=== PATIENT | female | born 1995 | race Caucasian/White ===

== ENCOUNTER 2024-12-04 18:30 | Emergency (ER) | payer OTHER ==
[~2024-12-04] VITALS: Ht 162.6 cm; Wt 77.0 kg
[2024-12-04 18:40] VITALS: TEMP 36.9; O2SAT 100
[2024-12-04 21:17] LABS: BASOPHILS % 0.6 % (0.0-2.0); EOSINOPHILS % 1.4 % (0.0-5.0); HEMATOCRIT. 39.6 % (36.0-48.0); HEMOGLOBIN. 13.1 g/dL (12.0-16.0); LYMPHOCYTES % 26.9 % (20.0-50.0); MEAN CORPUSCULAR HEMOGLOBIN 27.7 pg (28.0-32.0); MEAN CORPUSCULAR HGB CONC 32.9 g/dL (31.0-37.0); MEAN PLATELET VOLUME 8.2 fl (7.4-10.4); MONOCYTES % 6.1 % (2.0-8.0); PLATELET 318 x1000/uL (130-400); RED BLOOD CELL COUNT 4.72 mill/uL (4.2-5.4); RED CELL DISTRIBUTION WIDTH 13.8 % (11.6-14.6); WHITE BLOOD COUNT 12.8 x1000/uL (4.5-11.0)
[2024-12-04 21:22] LABS: CHLORIDE 106 mEq/L (98-107); POTASSIUM 3.8 mEq/L (3.5-5.1); SODIUM 138 mEq/L (136-145)
[2024-12-04 21:23] LABS: CALCIUM 9.3 mg/dL (8.7-10.4); CARBON DIOXIDE 24 mEq/L (21-32)
[2024-12-04 21:28] LABS: CREATININE 0.8 mg/dL (0.6-1.0); GLUCOSE 88 mg/dL (70-105); HCG SCREEN NEGATIVE; UREA NITROGEN BLOOD 9 mg/dL (9-23)
[2024-12-04 21:33] LABS: TROPONIN I HIGH SENSITIVITY < 4 ng/L (3.0-34)
[2024-12-04] MEDS ORDERED: CYCL5TAB3 MT (21:55)
[2024-12-04] MEDS ORDERED: BO1 TP (21:59)
[2024-12-04 22:21] VITALS: BP 149/98; PULSE 61; RESP 16; TEMP 98.4
[2024-12-04] MEDS: ACETAMINOPHEN 325MG TABLET PO ONE (22:21)
[2024-12-04] MEDS: KETOROLAC 30MG/ML VIAL IM ONE (22:21)
[2024-12-04] MEDS: CYCLOBENZAPRINE 10MG TABLET PO ONE (22:22)
== END 2024-12-04 22:22 | disposition home or self-care (01) ==
LOC: ER 18:30
DX: S81.011A Laceration without foreign body, right knee, initial encounter (principal); M54.6 Pain in thoracic spine; M54.50 Low back pain, unspecified; X58.XXXA Exposure to other specified factors, initial encounter; Y93.89 Activity, other specified; Y92.89 Other specified places as the place of occurrence of the external cause; Y99.8 Other external cause status
CPT/HCPCS: 99285; 71045; 80048; 84703; 85025; 84484; 36415; 93005; 96372; J1885